=== PATIENT | female | born 1965 ===

== ENCOUNTER 2016-12-24 09:05 | Day surgery (SDC) | payer SELFPAY ==
[2016-12-24 10:09] VITALS: BMI 48.8
[2016-12-24 10:16] VITALS: RESP 16; TEMP 98
[2016-12-24] MEDS ORDERED: Midazolam 2 MG/2 ML VIAL ONE (12:26)
[2016-12-24] MEDS ORDERED: Propofol 10 mg/ml Inj (20 ML) ONE (12:26)
[2016-12-24 13:25] VITALS: O2SAT 100
[2016-12-24 13:27] VITALS: BP 125/71; PULSE 69
== END 2016-12-24 13:35 | disposition home or self-care (01) ==
LOC: C.ENDO 09:05
PROVIDERS: ATTEND Internal Medicine Gastroenterology
DX: K57.30 Diverticulosis of large intestine without perforation or abscess without bleeding (principal); K64.1 Second degree hemorrhoids; Z86.010 Personal history of colon polyps
CPT/HCPCS: 45378; 82948; J2250; J2704

== ENCOUNTER 2017-04-17 06:48 | Day surgery (SDC) | payer OTHER ==
[2017-04-10 13:43] VITALS: BMI 47.6
[~2017-04-17 06:48] MED LIST: Phenylephrine 2.5% Opht Soln OD SCH; Tropicamide 1% Opht SOLUTION OD SCH
[2017-04-17] MEDS ORDERED: Tetracaine 0.5% Ophth (OR ONLY) ONE (07:25)
[2017-04-17] MEDS ORDERED: Tobramycin/Dexamethasone OPHT OINT ONE (07:25)
[2017-04-17] MEDS ORDERED: Lactated Ringer's 1,000 ML IV ONE (07:35)
[2017-04-17] MEDS ORDERED: Lactated Ringer's 500 ML IV ONE (09:00)
[2017-04-17] MEDS: Carbachol 0.01% IO ONE ×2 (09:08→10:20)
[2017-04-17] MEDS: Chondroitin/Hyaluronate Opth Syringe KIT (0.55 ml-0.5 ml) IO ONE ×2 (09:11→10:21)
[2017-04-17] MEDS: Hyaluronidase Human, Recombi 150 U/ML VIAL ONE ×2 (09:11→10:18)
[2017-04-17] MEDS: Povidone Iodine Ophthalmic 5% Soln ONE ×2 (09:12→10:18)
[2017-04-17] MEDS ORDERED: Propofol 10 mg/ml Inj (20 ML) ONE (09:47)
[2017-04-17 10:59] VITALS: RESP 18; TEMP 97.6; O2SAT 100
[2017-04-17 11:28] VITALS: BP 115/72; PULSE 70
[2017-04-17] MEDS ORDERED: Lidocaine 2% Inj (20ml) ONE (11:28)
--- NOTE | 2017-04-18 11:29 | OP ---
PROCEDURE DATE: 04/17/2017 PREOPERATIVE DIAGNOSIS: Mature cataract, right eye. POSTOPERATIVE DIAGNOSIS: Mature cataract, right eye. OPERATIVE PROCEDURE: Cataract extraction with lens implant, right eye. SURGEON: Elder Stokes MD ANESTHESIA: Retrobulbar block. COMPLICATIONS: None. ESTIMATED BLOOD LOSS: 0 mL. PROCEDURE: The patient was brought to the operating room and properly identified. Anesthesia staff administered intravenous sedation and retrobulbar block was given to the surgical eye. The patient was then prepped and draped in the usual sterile fashion. Attention was turned to the surgical eye. A lid speculum was placed into interpalpebral fissure. Sitting temporally, two paracentesis incisions were made. The anterior chamber was filled with viscoelastic and a triplanar clear corneal incision was made. Using a cystitome, anterior capsular leaflet was created. Utrata forceps were used to create a continuous curvilinear capsulorrhexis. Balanced salt solution on a cannula was used to hydrodissect and hydrodelineate the lens. The lens was then phacoemulsified with no complications. Automated irrigation and aspiration was used to remove the cortex. Viscoelastic was used to deepen the anterior chamber. The lens was placed in the capsular bag. Automated irrigation and aspiration was used to remove the viscoelastic. The anterior chamber was filled with Miochol. The wounds were hydrated with balanced salt solution. There was noted to be no leak at the end of the case and the lens was well positioned. The lid speculum was removed. The eye was given antibiotics and steroids and covered with a patch and shield. The patient was returned to the recovery room in stable condition. Elder Stokes MD
== END 2017-04-17 11:30 | disposition home or self-care (01) ==
LOC: C.SDS 06:48
PROVIDERS: ATTEND Ophthalmology
DX: H26.9 Unspecified cataract (principal)
CPT/HCPCS: 66984; 82948; J2704; J3470; J7120

== ENCOUNTER 2017-05-22 07:45 | Day surgery (SDC) | payer OTHER ==
[2017-04-10 13:43] VITALS: BMI 47.6
[~2017-05-22 07:45] MED LIST changes: +Lactated Ringer's 500 ML IV ONE; -Phenylephrine 2.5% Opht Soln OD SCH; +Phenylephrine 2.5% Opht Soln OS SCH; -Tropicamide 1% Opht SOLUTION OD SCH; +Tropicamide 1% Opht SOLUTION OS SCH
[2017-05-22] MEDS ORDERED: Lactated Ringer's 500 ML IV ONE (08:00)
[2017-05-22] MEDS: Tetracaine 0.5% Ophth (OR ONLY) ONE ×2 (09:02→09:28)
[2017-05-22] MEDS: Lidocaine 2% Inj (20ml) ONE ×2 (09:03→09:29)
[2017-05-22] MEDS: Hyaluronidase Human, Recombi 150 U/ML VIAL ONE ×2 (09:03→09:29)
[2017-05-22] MEDS: Chondroitin/Hyaluronate Opth Syringe KIT (0.55 ml-0.5 ml) IO ONE ×2 (09:04→09:37)
[2017-05-22] MEDS: Carbachol 0.01% IO ONE ×2 (09:04→09:34)
[2017-05-22] MEDS: Povidone Iodine Ophthalmic 5% Soln ONE ×2 (09:04→09:34)
[2017-05-22] MEDS: Tobramycin/Dexamethasone OPHT OINT ONE ×2 (09:05→09:38)
[2017-05-22] MEDS ORDERED: Propofol 10 mg/ml Inj (20 ML) ONE (09:43)
[2017-05-22] MEDS ORDERED: Midazolam 2 MG/2 ML VIAL ONE (09:45)
[2017-05-22 11:21] VITALS: BP 116/60; PULSE 66; RESP 16; TEMP 98.5; O2SAT 97
--- NOTE | 2017-05-22 13:24 | OP ---
PROCEDURE DATE: 05/22/2017 PREOPERATIVE DIAGNOSIS: Nuclear cataract, left eye. POSTOPERATIVE DIAGNOSIS: Nuclear cataract, left eye. OPERATIVE PROCEDURE: Cataract extraction with lens implant, left eye. SURGEON: Elder Stokes MD TYPE OF ANESTHESIA: Retrobulbar block. COMPLICATIONS: None. DESCRIPTION OF PROCEDURE: The patient was brought to the operating room and properly identified. Anesthesia staff administered intravenous sedation and retrobulbar block was given to the surgical eye. The patient was then prepped and draped in the usual sterile fashion. Attention was turned to the surgical eye. A lid speculum was placed into interpalpebral fissure. Sitting temporally, two paracentesis incisions were made. The anterior chamber was filled with viscoelastic and a triplanar clear corneal incision was made. Using a cystitome, anterior capsular leaflet was created. Utrata forceps were used to create a continuous curvilinear capsulorrhexis. Balanced salt solution on a cannula was used to hydrodissect and hydrodelineate the lens. The lens was then phacoemulsified with no complications. Automated irrigation and aspiration was used to remove the cortex. Viscoelastic was used to deepen the anterior chamber. The lens was placed in the capsular bag. Automated irrigation and aspiration was used to remove the viscoelastic. The anterior chamber was filled with Miochol. The wounds were hydrated with balanced salt solution. There was noted to be no leak at the end of the case and the lens was well positioned. The lid speculum was removed. The eye was given antibiotics and steroids and covered with a patch and shield. The patient was returned to the recovery room in stable condition. Elder Stokes MD
== END 2017-05-22 10:48 | disposition home or self-care (01) ==
LOC: C.SDS 07:45
PROVIDERS: ATTEND Ophthalmology
DX: H26.9 Unspecified cataract (principal)
CPT/HCPCS: 66984; 82948; J2250; J2704; J3470; J7120

== ENCOUNTER 2018-11-30 07:28 | Outpatient (CLI) | payer OTHER | END 2018-11-30 07:29 | disposition home or self-care (01) | LOC: C.USIC 07:28 ==

== ENCOUNTER → 2019-01-12 | Outpatient (CLI) | payer OTHER | LOC: C.USIC 10:43 | DX: R80.9 Proteinuria, unspecified (principal) ==